=== PATIENT | female | born 1975 | race Caucasian/White ===

== ENCOUNTER 2022-12-10 04:51 | Observation (INO) ==
[2022-12-10 06:21] LABS: Basophils # 0.1 10*3/uL (0.0-0.2); Basophils % 0.4 % (0.0-0.8); Eosinophils # 0.5 10*3/uL (0.0-0.87); Eosinophils % 3.8 % (0.00-10.9); Hematocrit 39.9 VOL% (35.7-47.0); Hemoglobin 12.4 GM/DL (12.0-16.0); Immature Granulocytes % 0.4 %; Immature Granulocytes Absolute 0.06 #; Lymphocytes # 3.3 10*3/uL (1.4-4.0); Lymphocytes % 23.9 % (21.3-54.2); Mean Corpuscular HGB Conc 31.1 GM/DL (32-36); Mean Corpuscular Volume 91.1 FL (87-102); Mean Platelet Volume 8.8 FL (9.6-12.0); Monocytes # 0.9 10*3/uL (0.11-0.8); Monocytes % 6.5 % (1.7-12.7); Platelet Count 270 T/CUMM (130-400); Red Blood Count 4.38 MC/CUMM (3.8-5.5); Red Cell Distribution Width 14.4 % (9.3-17.3); White Blood Count 13.78 T/CUMM (4-12)
[2022-12-10 06:36] LABS: Alanine Aminotransferase 20 U/L (13-56); Albumin 3.8 G/DL (3.4-5.0); Alkaline Phosphatase 79 U/L (45-117); Aspartate Amino Transferase 18 U/L (0-37); Bilirubin,Total < 0.39 MG/DL (0.20-1.00); Blood Urea Nitrogen 19 MG/DL (7-18); Calcium 8.7 MG/DL (8.5-10.1); Carbon Dioxide 24 MMOL/L (21-32); Chloride 112 MMOL/L (98-107); Glucose 81 MG/DL (74-106); Potassium 3.9 MMOL/L (3.5-5.1); Sodium 143 MMOL/L (136-145); Total Protein 7.2 G/DL (6.4-8.2)
[2022-12-10] MEDS: DEXTROSE 5% NACL 0.45% 1,000 ML IV SCH ×2 (07:26→15:22)
[2022-12-10] MEDS: PANTOPRAZOLE 40 MG VIAL IV SCH (08:50)
[2022-12-10] MEDS ORDERED: MIDAZOLAM 2 MG/2 ML VIAL ONE (12:10)
[2022-12-10] MEDS ORDERED: ONDANSETRON 4 MG/2 ML VIAL ONE (12:10)
[2022-12-10] MEDS ORDERED: DEXAMETHASONE 4 MG/1 ML VIAL ONE (12:10)
[2022-12-10] MEDS ORDERED: propofoL 200 MG/20 ML VIAL IV ONE (12:10)
[2022-12-10] MEDS ORDERED: LIDOCAINE 2% 5 ML VIAL ONE (12:10)
[2022-12-10] MEDS ORDERED: fentaNYL 100 MCG/2 ML VIAL ONE (12:10)
[2022-12-10] MEDS ORDERED: SEVOFLURANE 1 UNIT/15 MINUTE INH ONE (12:10)
[2022-12-10] MEDS ORDERED: ROCURONIUM 50 MG/5 ML VIAL IV ONE (12:10)
[2022-12-10] MEDS ORDERED: BUPIVACAINE MPF 0.25% 10 ML VIAL ONE (12:21)
[2022-12-10] MEDS ORDERED: LIDOCAINE 1%/EPI INJ 20 ML VIAL ONE (12:21)
[2022-12-10] MEDS ORDERED: SUGAMMADEX 200 MG/2 ML VIAL IV ONE (12:49)
[2022-12-10] MEDS ORDERED: HYDROmorphone 1 MG/1 ML SYRINGE IV PRN (12:57)
[2022-12-10] MEDS ORDERED: ONDANSETRON 4 MG/2 ML VIAL IV PRN (12:57)
[2022-12-11] MEDS: DEXTROSE 5% NACL 0.45% 1,000 ML IV SCH (00:37)
[2022-12-11 05:29] LABS: Basophils % 0.2 % (0.0-0.8); Eosinophils % 0.2 % (0.00-10.9); Hematocrit 36.5 VOL% (35.7-47.0); Hemoglobin 11.6 GM/DL (12.0-16.0); Immature Granulocytes % 0.6 %; Immature Granulocytes Absolute 0.08 #; Lymphocytes # 1.8 10*3/uL (1.4-4.0); Lymphocytes % 12.2 % (21.3-54.2); Mean Corpuscular HGB Conc 31.8 GM/DL (32-36); Mean Corpuscular Volume 90.3 FL (87-102); Monocytes # 0.8 10*3/uL (0.11-0.8); Monocytes % 5.8 % (1.7-12.7); Platelet Count 254 T/CUMM (130-400); Red Blood Count 4.04 MC/CUMM (3.8-5.5); Red Cell Distribution Width 14.1 % (9.3-17.3); White Blood Count 14.41 T/CUMM (4-12)
[2022-12-11 07:46] VITALS: BP 103/64
[2022-12-11] MEDS: PANTOPRAZOLE 40 MG VIAL IV SCH (08:45)
== END 2022-12-11 10:49 | disposition home or self-care (01) ==
LOC: N.ED 04:51 → N.EDINP 04:51 → N.3E 06:59
PROVIDERS: ADMIT Surgery; ATTEND Surgery